=== PATIENT | female | born 1970 | race Caucasian/White ===

== ENCOUNTER 2017-01-28 16:59 | Emergency (ER) | payer SELFPAY ==
[2017-01-28 17:18] VITALS: BP 106/74; PULSE 82; RESP 18; TEMP 98.1; O2SAT 95
--- NOTE | 2017-01-28 17:54 | C.PDOC ---
History Of Present Illness 46 y/o female presents to the ED c/o sore throat,vomiting for 6 months. The patient notes that it has worsened within the last three days only when she swallows, but she is able to swallow solids and liquids. The patient has an occasional cough. The patient denies fever, neck swelling, weight loss, and dizziness VIA TRANS SORE THROAT V 6 MONTHS, WORSE X 3 DAYS. PRESENT ONLY WHEN SWALLOWS BUT ABLE TO SWALLOW SOLIDS AND LIQUIDS. OCC COUGH. NO FEVER, WT LOSS, NECK SWELL EXAM NEG Time Seen by Provider: 01/28/17 17:39 Chief Complaint (Nursing): ENT Problem History Per: Patient Onset/Duration Of Symptoms: Days Current Symptoms Are (Timing): Still Present Past Medical History Reviewed: Historical Data, Nursing Documentation, Vital Signs Vital Signs: Last Vital Signs Temp 98.1 F 01/28/17 17:15 Pulse 82 01/28/17 17:15 Resp 18 01/28/17 17:15 BP 106/74 01/28/17 17:15 Pulse Ox 95 01/28/17 18:54 - Medical History PMH: HTN Surgical History: No Surg Hx Family History: States: Unknown Family Hx - Social History Hx Tobacco Use: No Hx Alcohol Use: No Hx Substance Use: No - Immunization History Hx Tetanus Toxoid Vaccination: No Hx Influenza Vaccination: No Hx Pneumococcal Vaccination: No Review Of Systems Except As Marked, All Systems Reviewed And Found Negative. Constitutional: Negative for: Fever, Chills, Weight loss Cardiovascular: Negative for: Chest Pain Respiratory: Positive for: Cough (occassionally ). Negative for: Shortness of Breath Gastrointestinal: Positive for: Vomiting. Negative for: Nausea, Abdominal Pain Musculoskeletal: Negative for: Neck Pain Skin: Negative for: Rash Physical Exam - Physical Exam Appears: Non-toxic, No Acute Distress Skin: Warm, Dry, No Diaphoretic Head: Atraumatic, Normacephalic Oral Mucosa: Moist Neck: Supple Chest: Symmetrical Cardiovascular: Rhythm Regular Respiratory: Normal Breath Sounds, No Rales, No Rhonchi, No Wheezing Gastrointestinal/Abdominal: Soft, No Tenderness, No Guarding, No Rebound Extremity: Capillary Refill (<2sec.) Neurological/Psych: Oriented x3, Normal Speech, Normal Cognition Gait: Steady ED Course And Treatment O2 Sat by Pulse Oximetry: 95 (RA) Pulse Ox Interpretation: Normal - Radiology CXR: Interpreted by Pa CXR Interpretation: Yes: No Acute Disease - Other Rad NECK SOFT TISSUE X-Ray: Interpreted by Me (NEG) Progress Note: The patient was administered a Chest and neck X- Ray. The exams are unremarkable. The patient is resting comfortably. Upon reassessment, the patient is no longer vomiting, aferbile, and PO tolerant. The patient is advised to have a 1-2 day follow up with her PMD for further evalaution. Medical Decision Making Medical Decision Making: Chest X-Ray and Neck X-Ray waiting to be read. Disposition Counseled Patient/Family Regarding: Studies Performed, Diagnosis, Need For Followup - Disposition Referrals: [facility] [Outside] [facility] [Outside] Disposition: HOME/ ROUTINE Disposition Time: 18:35 Condition: GOOD Instructions: Dysphagia (ED) Forms: [facility] (Kyrgyz) - Clinical Impression Clinical Impression: Chronic throat pain - Scribe Statement The provider has reviewed the documentation as recorded by the Scribanjelica Viramontes All medical record entries made by the Shekharibanjelica were at my direction and personally dictated by me. I have reviewed the chart and agree that the record accurately reflects my personal performance of the history, physical exam, medical decision making, and the department course for this patient. I have also personally directed, reviewed, and agree with the discharge instructions and disposition.
--- NOTE | 2017-01-29 08:18 | RAD ---
Chest x-ray two views History: Cough. Comparison: None available. Findings: No focal infiltrate or effusion. Heart size within normal limits. Degenerative changes in the spine. Impression: No focal infiltrate or effusion.
--- NOTE | 2017-01-29 08:22 | RAD ---
Neck soft tissues two views History: Throat pain. Comparison: None available. Findings: Question mild prominence of the epiglottis, nonspecific. Clinical correlation. At the level of the epiglottis, there is a vertically-oriented linear foci of increased radiopaque density, also nonspecific. Correlation with soft tissue neck CT may be helpful for further evaluation if clinically indicated. Mild inferior endplate concavity of the C6 vertebral body. C7 vertebral body not adequately visualized on this study. Impression: Question mild prominence of the epiglottis, nonspecific. Clinical correlation. At the level of the epiglottis, there is a vertically-oriented linear foci of increased radiopaque density, also nonspecific. Correlation with soft tissue neck CT may be helpful for further evaluation if clinically indicated.
== END 2017-01-28 18:47 | disposition home or self-care (01) ==
LOC: C.ER 16:59
DX: R07.0 Pain in throat (principal); I10 Essential (primary) hypertension; G89.29 Other chronic pain

== ENCOUNTER 2018-07-20 16:27 | Emergency (ER) | payer OTHER ==
[2018-07-20 16:40] VITALS: BP 103/63; PULSE 77; RESP 18; TEMP 98.4; O2SAT 97
[2018-07-20] MEDS ORDERED: Penicillin G Benzathine 1.2 Mill Unit/2 ml Syr IM ONE ×2 (16:53→17:04)
--- NOTE | 2018-07-20 16:58 | C.PDOC ---
History Of Present Illness 47 year old female presents to ED with complaint of right ear pain and sore throat since yesterday. Patient also complains of nasal congestion and subjective fever. She states that she has been taking Tylenol with no relief. She also notes that it is painful for her to swallow. She denies runny nose, sinus pressure, and headache. Time Seen by Provider: 07/20/18 16:36 Chief Complaint (Nursing): ENT Problem History Per: Patient History/Exam Limitations: no limitations Onset/Duration Of Symptoms: Days (1) Current Symptoms Are (Timing): Still Present Location Of Pain: Ear(s) (right), Throat Associated Symptoms: Fever, Sore Throat, Nasal Congestion. denies: Cough, Sputum, Sinus Drainage Past Medical History Reviewed: Historical Data, Nursing Documentation, Vital Signs Vital Signs: Last Vital Signs Temp 98.4 F 07/20/18 16:39 Pulse 77 07/20/18 16:39 Resp 18 07/20/18 16:39 BP 103/63 07/20/18 16:39 Pulse Ox 97 07/20/18 16:39 - Medical History PMH: HTN Surgical History: No Surg Hx Family History: States: Unknown Family Hx - Social History Hx Tobacco Use: No Hx Alcohol Use: No Hx Substance Use: No - Immunization History Hx Tetanus Toxoid Vaccination: No Hx Influenza Vaccination: No Hx Pneumococcal Vaccination: No Review Of Systems Constitutional: Positive for: Fever. Negative for: Chills, Weakness ENT: Positive for: Ear Pain (right), Nose Congestion, Throat Pain. Negative for: Nose Discharge Respiratory: Negative for: Cough Neurological: Negative for: Headache Physical Exam - Physical Exam Appears: Well, Non-toxic, No Acute Distress Skin: Normal Color, Warm, Dry Head: Atraumatic, Normacephalic Eye(s): bilateral: Normal Inspection, EOMI Ear(s): Bilateral: Normal Nose: Normal Oral Mucosa: Moist Throat: Erythema (bright), No Exudate, No Drooling, No Mass Neck: Normal ROM, Supple Lymphatic: Adenopathy (right anterior cervical LN) Chest: Symmetrical, No Deformity Cardiovascular: Rhythm Regular, No Murmur Respiratory: Accessory Muscle Use, No Rales, No Rhonchi, No Wheezing Extremity: Capillary Refill (<2 seconds) Neurological/Psych: Oriented x3, Normal Speech ED Course And Treatment O2 Sat by Pulse Oximetry: 97 (in RA) Pulse Ox Interpretation: Normal Medical Decision Making Medical Decision Making: Impression: 47 year old male with sore throat and right ear pain. Plan: Patient to be treated with antibiotics. Patient requested penicillin injection IM. Patient treated with Bicillin and observed in ED. She remained afebrile and in no distress. She is able speak clearly and has no trouble swallowing. Disposition Counseled Patient/Family Regarding: Need For Followup, Rx Given - Disposition Referrals: [facility] [Outside] Disposition: HOME/ ROUTINE Disposition Time: 17:28 Condition: STABLE Additional Instructions: Usted fue tratado con inyeccin de Bicilina. Por favor, tome Tylenol o Ibuprofen para cualquier dolor o fiebre Seguimiento en la clnica. Instructions: Sore Throat, Adult (DC) Print Language: SLOVENIAN - POA Present On Arrival: None - Clinical Impression Clinical Impression: Pharyngitis - PA / SENIOR CLIENT ADVISOR / Resident Statement MD/DO has reviewed & agrees with the documentation as recorded. (Sapphire Harris) - Scribe Statement The provider has reviewed the documentation as recorded by the Scribe (Sapphire Harris) All medical record entries made by the Scribe were at my direction and personally dictated by me. I have reviewed the chart and agree that the record accurately reflects my personal performance of the history, physical exam, medical decision making, and the department course for this patient. I have also personally directed, reviewed, and agree with the discharge instructions and disposition.
== END 2018-07-20 17:34 | disposition home or self-care (01) ==
LOC: C.ER 16:27
DX: J02.9 Acute pharyngitis, unspecified (principal)
CPT/HCPCS: 96372; 99283; J0561